=== PATIENT | male | born 1975 | race Caucasian/White ===

== ENCOUNTER 2017-11-18 19:58 | Emergency (ER) | payer SELFPAY ==
--- NOTE | 2017-11-18 20:29 | EDPHY ---
H & P Stated Complaint: r nipple pain for months Time Seen by Provider: 11/18/17 20:19 HPI/ROS: CHIEF COMPLAINT: Right-sided chest pain x4 months HISTORY OF PRESENT ILLNESS: 42-year-old male complaining of 4 months of right- sided chest pain. Initially written on the triage note right nipple pain however states that the nipple itself is nontender. He is complaining of constant right-sided chest pain for the past 4 months, not reproducible with breathing, palpation, not reproducible with exertion. No cough. No dyspnea. No hemoptysis. No lower extremity edema or pain. PRIMARY CARE PROVIDER: REVIEW OF SYSTEMS: A ten point review of systems was performed and is negative with the exception of the items mentioned in the HPI PAST MEDICAL & SURGICAL HISTORY: No pertinent medical or surgical history SOCIAL HISTORY:Nonsmoker. No drug use. No cocaine use FAMILY HISTORY: No family history of cardiac disease . No coagulopathic disorder history. PHYSICAL EXAM (Prior to examination, patient consented to physical exam, hands were washed and my usual and customary physical exam procedures followed) 1) GENERAL: Well-developed, well-nourished, alert and oriented. Appears to be in no acute distress. 2) HEAD: Normocephalic, atraumatic 3) HEENT: Pupils equal, round, reactive to light bilaterally. Sclera anicteric. 4) NECK: Full range of motion, no meningeal signs. No carotid bruit 5) LUNGS: Clear auscultation bilaterally, no wheezes, no rhonchi, no retractions. 6) HEART: Regular rate and rhythm, no murmur, no heave, no gallop. Chest wall nontender. No blood self appears well with no crepitus no signs of infection no discharge. No chest mass. No skin changes. 7) ABDOMEN: No guarding, no rebound, no focal tenderness, negative McBurney's, negative Fleming's, negative Rovsing's, negative peritoneal sign, 8) MUSCULOSKELETAL: Moving all extremities, no focal areas of tenderness, no obvious trauma. No peripheral edema or discoloration. Negative Homans no palpable cord. No asymmetry. Brisk equal pulses 9) BACK: No CVA tenderness, no midline vertebral tenderness, no fluctuance, no step-off, no obvious trauma, no visual or palpable abnormality. 10) SKIN: No rash, no petechiae. 11) Psychiatric: Patient is oriented X 3, there is no agitation. DIFFERENTIAL DIAGNOSIS: In no particular order, including but not limited to myocardial ischemia, pulmonary embolus, chest wall pain, pleural inflammation and pulmonary infectious causes. - Personal History Current Tetanus/Diphtheria Vaccine: Yes Current Tetanus Diphtheria and Acellular Pertussis (TDAP): Yes - Medical/Surgical History Hx Asthma: No Hx Chronic Respiratory Disease: No Hx Diabetes: No Hx Cardiac Disease: No Hx Renal Disease: No Hx Cirrhosis: No Hx Alcoholism: No Hx HIV/AIDS: No Hx Splenectomy or Spleen Trauma: No - Social History Smoking Status: Never smoked Constitutional: Initial Vital Signs Temperature (C) 36.6 C 11/18/17 20:02 Heart Rate 88 11/18/17 20:02 Respiratory Rate 18 11/18/17 20:02 Blood Pressure 113/75 11/18/17 20:02 O2 Sat (%) 92 11/18/17 20:02 O2 Delivery Mode Room Air Allergies/Adverse Reactions: No Known Allergies Allergy (Unverified 11/18/17 20:02) Home Medications: Medication Instructions Recorded NK [No Known Home Meds] 11/18/17 Medical Decision Making - Diagnostics Imaging Results: Imaging Impressions Chest X-Ray 11/18/17 20:27 Impression: 1. Normal chest tube 2. Distended fluid-filled stomach. Images reviewed myself ED Course/Re-evaluation: 8:29 p.m.: Patient has right-sided chest pain for 4 months with no definitive reproducible pattern. Not described as pleuritic however. Initially described as nipple pain however his nipple itself is nontender and shows no signs of infection. Negative perc. Doubt pulmonary embolus. 9:21 p.m.: Re-evaluation, patient has normal sinus EKG, negative troponin, negative chest x-ray. The specific etiology of his right-sided chest pain may be related musculoskeletal pathology. Doubt PE, doubt aortic dissection, doubt GA, doubt cardiac pathology. Patient has low HEART score. Shared decision- making regarding the patient's heart score discussed with patient. I recommended NSAIDs and given my NSAID precautions and instructions. He feels comfortable being discharged. - Data Points Laboratory Results: Laboratory Results 11/18/17 20:40 11/18/17 20:40 11/18/17 11/18/17 11/18/17 20:44 20:40 20:40 WBC 6.70 10^3/uL 10^3/uL (3.80-9.50) RBC 4.89 10^6/uL 10^6/uL (4.40-6.38) Hgb 14.9 g/dL g/dL (13.7-17.5) Hct 42.5 % % (40.0-51.0) MCV 86.9 fL fL (81.5-99.8) MCH 30.5 pg pg (27.9-34.1) MCHC 35.1 g/dL g/dL (32.4-36.7) RDW 12.6 % % (11.5-15.2) Plt Count 226 10^3/uL 10^3/uL (150-400) MPV 11.1 fL fL (8.7-11.7) Neut % (Auto) 49.9 % % (39.3-74.2) Lymph % (Auto) 38.1 % % (15.0-45.0) Iron % (Auto) 8.1 % % (4.5-13.0) Eos % (Auto) 2.7 % % (0.6-7.6) Baso % (Auto) 0.9 % % (0.3-1.7) Nucleat RBC Rel Count 0.0 % % (0.0-0.2) Absolute Neuts (auto) 3.35 10^3/uL 10^3/uL (1.70-6.50) Absolute Lymphs (auto) 2.55 10^3/uL 10^3/uL (1.00-3.00) Absolute Monos (auto) 0.54 10^3/uL 10^3/uL (0.30-0.80) Absolute Eos (auto) 0.18 10^3/uL 10^3/uL (0.03-0.40) Absolute Basos (auto) 0.06 10^3/uL 10^3/uL (0.02-0.10) Absolute Nucleated RBC 0.00 10^3/uL 10^3/uL (0-0.01) Immature Gran % 0.3 % % (0.0-1.1) Immature Gran # 0.02 10^3/uL 10^3/uL (0.00-0.10) Sodium 139 mEq/L mEq/L (135-145) Potassium 3.8 mEq/L mEq/L (3.3-5.0) Chloride 104 mEq/L mEq/L (97-110) Carbon Dioxide 24 mEq/l mEq/l (22-31) Anion Gap 11 mEq/L mEq/L (8-16) BUN 19 mg/dL mg/dL (7-23) Creatinine 0.8 mg/dL mg/dL (0.7-1.3) Estimated GFR > 60 Glucose 111 mg/dL H mg/dL (70-100) Calcium 9.7 mg/dL mg/dL (8.5-10.4) POC Troponin I 0.00 ng/mL ng/mL (0.00-0.08) Point of Care Test Results: Chemistry 11/18/17 20:44 POC Troponin I 0.00 ng/mL ng/mL (0.00-0.08) Departure - Departure Disposition: Home, Routine, Self-Care Clinical Impression: Right-sided chest pain Condition: Good Instructions: Chest Pain (ED) Additional Instructions: Seek medical attention if you develop new or worsening chest pain, if you develop new or worsening shortness of breath, or any other symptoms that concern you. Referrals: [facility],. [Clinic] - As per Instructions
[2017-11-18 20:49] LABS: PLATELET COUNT 226 10^3/uL (150-400)
[2017-11-18 21:36] VITALS: BP 115/64
--- NOTE | 2017-11-19 21:00 | CPEKG ---
Test Reason : OPEN Blood Pressure : / mmHG Vent. Rate : 084 BPM Atrial Rate : 084 BPM P-R Int : 168 ms QRS Dur : 093 ms QT Int : 372 ms P-R-T Axes : 028 014 017 degrees QTc Int : 440 ms Sinus rhythm Confirmed by Andrew Springer ([id number]) on 11/19/2017 9:00:02 PM Referred By: Confirmed By:Andrew Springer
== END 2017-11-18 21:36 | disposition home or self-care (01) ==
DX: R07.9 Chest pain, unspecified (principal)
CPT/HCPCS: 84484-PO